=== PATIENT | male | born 1945 | race Two or more races ===

== ENCOUNTER 2022-09-25 14:25 | Inpatient (IN) | payer MEDICARE, OTHER ==
[~2022-09-25] VITALS: Ht 175.3 cm; Wt 52.2 kg
--- NOTE | 2022-09-25 14:44 | NUR ---
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
--- NOTE | 2022-09-25 15:40 | NUR ---
MOVE SHEET SUBMITTED.
[2022-09-25] MEDS ORDERED: METO-357 PO (15:42)
[2022-09-25] MEDS ORDERED: HYDR25TA4 PO (15:42)
[2022-09-25 16:27] LABS: BASOPHILS # (AUTO) 0.1 K/uL (0.0-0.2); BASOPHILS % (AUTO) 0.7 % (0.0-2.0); EOSINOPHILS % (AUTO) 0.5 % (0.0-6.0); HEMATOCRIT 48 % (39-51); HEMOGLOBIN 16.1 g/dL (13.5-17.5); LYMPHOCYTES # (AUTO) 1.8 K/uL (0.8-4.8); LYMPHOCYTES % (AUTO) 18.8 % (20.0-44.0); MEAN CORPUSCULAR HGB CONC 33 g/dl (31.0-36.0); MEAN CORPUSCULAR VOLUME 85 fL (80-96); MONOCYTES # (AUTO) 0.6 K/uL (0.1-1.30); MONOCYTES % (AUTO) 6.4 % (2.0-12.0); NEUTROPHILS # (AUTO) 7.1 K/uL (1.8-8.9); NEUTROPHILS % (AUTO) 73.6 % (43.0-81.0); PLATELET COUNT (AUTO) 322 K/uL (150-450); RED BLOOD CELL COUNT(AUTO) 5.69 MIL/uL (4.5-6.0); WHITE BLOOD COUNT (AUTO) 9.6 K/uL (4.3-11.0)
[2022-09-25 16:30] LABS: BILIRUBIN,URINE NEGATIVE (NEGATIVE); COLOR,URINE YELLOW (YELLOW); LEUKOCYTE ESTERASE ,URINE NEGATIVE (NEGATIVE); NITRITE, URINE NEGATIVE (NEGATIVE); PH,URINE 7.5 (5.0-8.0); PROTEIN,URINE NEGATIVE (NEGATIVE); UGLUCOSE NEGATIVE (NEGATIVE)
[2022-09-25 16:49] LABS: CALCIUM, SERUM 9.2 mg/dL (8.5-10.1); CARBON DIOXIDE 24 mmol/L (21-32); CHLORIDE 100 mmol/L (98-107); CREATININE 0.5 mg/dL (0.6-1.3); GLUCOSE 148 mg/dL (74-106); POTASSIUM 3.5 mmol/L (3.5-5.1); SODIUM SERUM 134 mmol/L (136-145); UREA NITROGEN, BLOOD 19 mg/dL (7-18)
[2022-09-25 17:02] LABS: ALANINE AMINOTRANSFERASE 16 U/L (12-78); ALBUMIN 3.5 g/dL (3.4-5.0); ALKALINE PHOSPHATASE 152 U/L (46-116); ASPARTATE AMINOTRANSFERASE 20 U/L (15-37); BILIRUBIN,DIRECT 0.2 mg/dL (0.0-0.2); BILIRUBIN,TOTAL 0.6 mg/dL (0.2-1.0); TOTAL PROTEIN, SERUM 7.2 g/dL (6.4-8.2)
[2022-09-25] MEDS ORDERED: ONDANSETRON HCL/PF 4 MG/2 ML VIAL IVP PRN (17:30)
[2022-09-25] MEDS ORDERED: Z GUARD REMEDY 4 OZ OINT TP PRN (17:30)
[2022-09-25 17:46] LABS: BACTERIA,URINE None seen /HPF (None Seen); RBC,URINE 0-2 /HPF (0-2); SQUAMOUS EPITHELIAL CELL,UR 0-2 /HPF (None Seen); WBC,URINE 0-2 /HPF (0-3)
--- NOTE | 2022-09-25 19:24 | NUR ---
COVID TEST TAKEN ON BED #3 COMPLETED AND TURNED INTO LAB
--- NOTE | 2022-09-25 19:46 | NUR ---
IV Stop time 1830 no further IV meds ordered until AM 09/26/21 and IV site infiltrated so D/C at this time
--- NOTE | 2022-09-25 20:33 | NUR ---
IV LINE ESTABLISHED, [id number]
--- NOTE | 2022-09-25 21:09 | NUR ---
REPORT GIVEN TO DOYLE BEAR
--- NOTE | 2022-09-25 21:17 | NUR ---
PATIENT BEING TRANSFERRED TO [facility]
--- NOTE | 2022-09-25 21:30 | NUR ---
MS COMMUNITY ENGAGEMENT COORDINATOR NOTE RECEIVED REPORT FROM ER NURSE JUSTUS. PT BEING ADMITTED IN ROOM 109 FOR FAILURE TO THRIVE. PT A/O X3, ABLE TO VERBALIZE NEEDS. PT IS [place]. PT IS ON BED REST. SKIN IS INTACT, HAS BRACES TO BLE, AND WEAKNESS TO BUE, AND BLE. IV SITE TO RIGHT WRIST 20G, PATENT, AND FLUSHING WELL. PT ON ROOM AIR, AND TOLERATING RA WELL. NO S/S OF RESPIRATORY DISTRESS NOTED, NO C/O OF PAIN. BELONGING LIST CHECKED, AND COMPLETED. VS TAKEN, AND RECORDED. ADMISSION COMPLETED. SAFETY MEASURES IMPLEMENTED: BED LOCKED, IN LOWEST POSITION, SR UP X2, CALL LIGHT AND TABLE WITHIN REACH, WILL CONTINUE TO MONITOR PT.
--- NOTE | 2022-09-25 22:35 | NUR ---
RN NOTE PT C/O HEADACHE. TYLENOL ADMINISTERED TO PT FOR HEADACHE.
[2022-09-25] MEDS: ACETAMINOPHEN 325 MG TABLET PO PRN (23:36)
[2022-09-26 04:00] VITALS: BP 103/70
--- NOTE | 2022-09-26 07:04 | NUR ---
STEAM CLEANING MACHINE OPERATOR CLOSING NOTE LEFT PT IN BED, AWAKE. PT ALERT AND ORIENTED X2-3, ABLE TO VERBALIZE NEEDS. NO S/S OF RESPIRATORY DISTRESS NOTED. NO C/O PAIN AT THIS TIME. IV ACCESS TO RIGHT HAND 20G PATENT, AND INFUSING NS AT 80ML/HR. O2 AT 97% ON RA, TOLERATING RA WELL. SAFETY MEASURES IMPLEMENTED, BED LOCKED IN LOWEST POSITION, CALL LIGHT WITHIN REACH, SR UP X2. WILL ENDORSE TO MORNING SHIFT NURSE FOR CONTINUITY OF CARE.
--- NOTE | 2022-09-26 07:34 | NUR ---
MID LEVEL PROJECT MANAGER OPENING NOTES Received pt awake in bed AOx2-3. No complaints of pain or discomfort at this time. Pt is on RA and tolerating it well. IV access on RFA 20G SL patent and intact. Pt had BLE braces on both legs. HOB elevated to pts comfort. Siderails up ar all times x2. Call light within reaach. Will anticipate needs.
[2022-09-26 07:46] LABS: BASOPHILS # (AUTO) 0.1 K/uL (0.0-0.2); EOSINOPHILS % (AUTO) 2.1 % (0.0-6.0); HEMATOCRIT 47 % (39-51); HEMOGLOBIN 15.8 g/dL (13.5-17.5); LYMPHOCYTES # (AUTO) 2.7 K/uL (0.8-4.8); LYMPHOCYTES % (AUTO) 27.6 % (20.0-44.0); MEAN CORPUSCULAR HGB CONC 33 g/dl (31.0-36.0); MEAN CORPUSCULAR VOLUME 85 fL (80-96); MONOCYTES # (AUTO) 1.1 K/uL (0.1-1.30); MONOCYTES % (AUTO) 11.1 % (2.0-12.0); NEUTROPHILS # (AUTO) 5.6 K/uL (1.8-8.9); NEUTROPHILS % (AUTO) 58.2 % (43.0-81.0); PLATELET COUNT (AUTO) 343 K/uL (150-450); RED BLOOD CELL COUNT(AUTO) 5.55 MIL/uL (4.5-6.0); WHITE BLOOD COUNT (AUTO) 9.6 K/uL (4.3-11.0)
[2022-09-26 08:00] VITALS: BP 128/71
[2022-09-26 08:07] LABS: ALANINE AMINOTRANSFERASE 15 U/L (12-78); ALBUMIN 3.3 g/dL (3.4-5.0); ALKALINE PHOSPHATASE 150 U/L (46-116); ASPARTATE AMINOTRANSFERASE 18 U/L (15-37); CALCIUM, SERUM 9.1 mg/dL (8.5-10.1); CARBON DIOXIDE 23 mmol/L (21-32); CHLORIDE 101 mmol/L (98-107); CREATININE 0.4 mg/dL (0.6-1.3); GLUCOSE 106 mg/dL (74-106); MAGNESIUM 2.4 mg/dL (1.8-2.4); PHOSPHORUS 4.2 mg/dL (2.5-4.9); POTASSIUM 3.5 mmol/L (3.5-5.1); SODIUM SERUM 134 mmol/L (136-145); UREA NITROGEN, BLOOD 18 mg/dL (7-18)
[2022-09-26] MEDS: METOPROLOL SUCCINATE 50 MG TAB.SR.24H PO SCH (08:51)
[2022-09-26] MEDS: HYDROCHLOROTHIAZIDE 25 MG TABLET PO SCH (08:52)
[2022-09-26 16:00] VITALS: BP 103/66
[2022-09-26] MEDS: IV NS 0.9% 1,000 ML IV PRN (17:41)
--- NOTE | 2022-09-26 18:35 | NUR ---
SWINE EXTENSION FIELD SPECIALIST CLOSING NOTES All due meds and tx given as ordered. Pt tolerated everything well. All needs attended to. Pt is currently on RA and tolerating it well. IV access on RFA 20G patent and intact currently running NS at 80cc/hr. HOB elevated to pts comfort. Siderails up at all times x2. Call light within reach. Will endorse to oncoming nurse.
[2022-09-26 20:00] VITALS: BP 107/63
--- NOTE | 2022-09-26 20:00 | NUR ---
MS RN OPENING NOTE RECEIVED PT IN BED, AWAKE. ALERT AND ORIENTED X2-3, ABLE TO VERBALIZE NEEDS. O2 SAT AT 97% ON R/A ,NO SOB NO S/S OF RESPIRATORY DISTRESS NOTED. NO C/O PAIN AT THIS TIME.V/S STABLE AFEBRILE . IV ACCESS TO RIGHT FA 20G PATENT, AND INTACT IVF INFUSING NS AT 80ML/HR. SAFETY MEASURES IMPLEMENTED, BED LOCKED IN LOWEST POSITION, CALL LIGHT WITHIN REACH, SR UP X2. WILL CONTINUE TO MONITOR PTS.
[2022-09-27] VITALS: BP 116/53
[2022-09-27] MEDS: ACETAMINOPHEN 325 MG TABLET PO PRN (00:56)
[2022-09-27 04:00] VITALS: BP 99/62
--- NOTE | 2022-09-27 07:18 | NUR ---
MS CLOSING NOTES Pts remain in bed awake alert x3 . on RA and tolerating it well. IV access on RFA 20G patent and intact currently running NS at 80cc/hr. HOB elevated to pts comfort. Siderails up at all times x2. Call light within reach. Will endorse to rn day nurse. for continuity of care.
[2022-09-27] MEDS: IV NS 0.9% 1,000 ML IV PRN (07:30)
[2022-09-27] MEDS: METOPROLOL SUCCINATE 50 MG TAB.SR.24H PO SCH (08:09)
[2022-09-27] MEDS: HYDROCHLOROTHIAZIDE 25 MG TABLET PO SCH (08:09)
--- NOTE | 2022-09-27 09:45 | NUR ---
Received pt awake in bed AOx2-3. No complaints of pain or discomfort at this time. Pt is on RA and tolerating it well. IV access on RFA 20G SL patent and intact. Pt had BLE braces on both legs. HOB elevated to pts comfort. Siderails up ar all times x2. Call light within reaach. Will anticipate needs.
[2022-09-27 16:00] VITALS: BP 122/76
[2022-09-27] MEDS: ENSURE ENLIVE 237 ML LIQUID (VANILLA) PO SCH (17:00)
[2022-09-27 20:00] VITALS: BP 125/76
[2022-09-28] VITALS: BP 130/76
[2022-09-28] MEDS: ACETAMINOPHEN 325 MG TABLET PO PRN (01:28)
[2022-09-28] MEDS: IV NS 0.9% 1,000 ML IV PRN (01:36)
--- NOTE | 2022-09-28 07:15 | NUR ---
RN OPENING NOTE PT IS IN BED SLEEPING BUT EASILY AROUSED, BREATHING UNLABORED, NO SOB, ON RM AIR, SATURATION 97%. IV ACCESS RIGHT FA #20g SALINE LOCKED, FLUSHES WELL. PLAN FOR TODAY IS A SAFETY D/C PATIENT TO SNF. ALL SAFETY MEASURES IMPLEMENTED, CALL LIGHT WITHIN REACH.
[2022-09-28 08:00] VITALS: BP 127/72
[2022-09-28] MEDS: ENSURE ENLIVE 237 ML LIQUID (VANILLA) PO SCH ×2 (08:26→12:00)
[2022-09-28] MEDS: HYDROCHLOROTHIAZIDE 25 MG TABLET PO SCH (09:00)
[2022-09-28 09:01] VITALS: BP 127/72
[2022-09-28] MEDS: METOPROLOL SUCCINATE 50 MG TAB.SR.24H PO SCH (09:01)
--- NOTE | 2022-09-28 11:38 | NUR ---
PATIENT SCHEDULED TO BE DISCHARGE TODAY, GOING TO [facility]. OVER THE PHONE REPORT GIVEN TO KAYDEN NURSE AT [facility].
--- NOTE | 2022-09-28 13:51 | NUR ---
PATIENT DISCHARGED TO [facility]. TRANSPORTED BY [facility]. VITAL SIGNS UPON DISCHARGE: BP 142/77; HEART RATE 103; RESP 18; O2 ON RA 96.
== END 2022-09-28 14:13 | DRG 641 ==
LOC: ER 14:35 → MEDSG1 20:43
PROVIDERS: ADMIT Internal Medicine; ATTEND Internal Medicine
DX: R62.7 Adult failure to thrive (principal); Z68.1 Body mass index [BMI] 19.9 or less, adult; E87.1 Hypo-osmolality and hyponatremia; Z20.822 Contact with and (suspected) exposure to COVID-19; I10 Essential (primary) hypertension; F03.90 Unspecified dementia, unspecified severity, without behavioral disturbance, psychotic disturbance, mood disturbance, and anxiety
CPT/HCPCS: 36415; 80048-TC; 80053-TC; 80076-TC; 81001; 83735-TC; 84100-TC; 84484-TC; 85025-TC; 87081-TC; C9803; G0378; J7030

== ENCOUNTER 2023-01-09 14:58 | Inpatient (IN) | payer MEDICARE, OTHER ==
[~2023-01-09] VITALS: Ht 172.7 cm; Wt 52.2 kg
[~2023-01-09 14:58] MED LIST: HYDR25TA4 PO; METO-357 PO
[2023-01-09 15:31] LABS: BASOPHILS # (AUTO) 0.2 K/uL (0.0-0.2); BASOPHILS % (AUTO) 0.8 % (0.0-2.0); EOSINOPHILS % (AUTO) 0.1 % (0.0-6.0); HEMATOCRIT 41 % (39-51); HEMOGLOBIN 13.6 g/dL (13.5-17.5); LYMPHOCYTES % (AUTO) 8.5 % (20.0-44.0); MEAN CORPUSCULAR HGB CONC 33 g/dl (31.0-36.0); MEAN CORPUSCULAR VOLUME 81 fL (80-96); MONOCYTES # (AUTO) 1.3 K/uL (0.1-1.30); MONOCYTES % (AUTO) 5.5 % (2.0-12.0); NEUTROPHILS # (AUTO) 19.8 K/uL (1.8-8.9); NEUTROPHILS % (AUTO) 85.1 % (43.0-81.0); PLATELET COUNT (AUTO) 460 K/uL (150-450); RED BLOOD CELL COUNT(AUTO) 5.03 MIL/uL (4.5-6.0); WHITE BLOOD COUNT (AUTO) 23.3 K/uL (4.3-11.0)
[2023-01-09 15:46] LABS: ALANINE AMINOTRANSFERASE 33 U/L (12-78); ALBUMIN 2.3 g/dL (3.4-5.0); ALKALINE PHOSPHATASE 216 U/L (46-116); ASPARTATE AMINOTRANSFERASE 28 U/L (15-37); BILIRUBIN,DIRECT 1.2 mg/dL (0.0-0.2); BILIRUBIN,TOTAL 1.8 mg/dL (0.2-1.0); CALCIUM, SERUM 8.9 mg/dL (8.5-10.1); CARBON DIOXIDE 26 mmol/L (21-32); CHLORIDE 91 mmol/L (98-107); CREATININE 0.5 mg/dL (0.6-1.3); GLUCOSE 150 mg/dL (74-106); LIPASE 1068 U/L (73-393); POTASSIUM 3.1 mmol/L (3.5-5.1); SODIUM SERUM 126 mmol/L (136-145); TOTAL PROTEIN, SERUM 6.7 g/dL (6.4-8.2); UREA NITROGEN, BLOOD 22 mg/dL (7-18)
[2023-01-09 16:10] LABS: LYMPHOCYTES % (MANUAL) 9 % (16-48); MONOCYTES % (MANUAL) 4 % (0-11.0); NEUTROPHILS % (MANUAL) 87 (42-76)
[2023-01-09] MEDS ORDERED: KETOROLAC TROMETHAMINE 15 MG/ML VIAL ONE (16:14)
[2023-01-09] MEDS ORDERED: POTASSIUM CL. PREMIX PERIPHER. 50 ML ONE ×4 (16:15→19:53)
[2023-01-09 16:19] LABS: BILIRUBIN,URINE 1+ (NEGATIVE); COLOR,URINE YELLOW (YELLOW); LEUKOCYTE ESTERASE ,URINE NEGATIVE (NEGATIVE); NITRITE, URINE NEGATIVE (NEGATIVE); PH,URINE 7.5 (5.0-8.0); PROTEIN,URINE 1+ mg/dl (NEGATIVE); UGLUCOSE NEGATIVE (NEGATIVE); UROBILINOGEN,URINE >=8.0 EU/dL (0.2)
[2023-01-09] MEDS: POTASSIUM CL. PREMIX PERIPHER. 50 ML IV SCH ×4 (16:25→19:55)
[2023-01-09] MEDS ORDERED: VANCOMYCIN 1 GM in IV D5W 250 ML IV ONE (16:30)
[2023-01-09] MEDS ORDERED: KETOROLAC TROMETHAMINE INJ 30 MG/ML VIAL IV ONE (16:30)
[2023-01-09] MEDS ORDERED: IV NS 0.9% 1,000 ML IV ONE (17:00)
[2023-01-09 17:04] LABS: BACTERIA,URINE None seen /HPF (None Seen); URINE AMORPHOUS PHOSPHATES Many /HPF (None Seen); WBC,URINE 0-2 /HPF (0-3)
[2023-01-09] MEDS: CEFEPIME 1 GM in IV D5W 50 ML IV ONE ×2 (17:35→18:37)
[2023-01-09] MEDS ORDERED: DONE5TAB34 PO (17:38)
[2023-01-09] MEDS ORDERED: CHOL100043 PO (17:38)
[2023-01-09] MEDS ORDERED: ACET-868 PO (17:38)
[2023-01-09] MEDS ORDERED: MULT-447 PO (17:38)
[2023-01-09] MEDS ORDERED: DOCU-141 PO (17:38)
[2023-01-09] MEDS ORDERED: MAGN400O6 PO (17:38)
[2023-01-09] MEDS ORDERED: PANT40TA2 PO (17:38)
[2023-01-09] MEDS ORDERED: AMIN30LI2 PO (17:38)
[2023-01-09] MEDS ORDERED: MAG30ORA PO (17:38)
[2023-01-09] MEDS ORDERED: NA P133E RC (17:38)
[2023-01-09] MEDS ORDERED: BISA10SU11 RC (17:38)
[2023-01-09] MEDS ORDERED: ACET-2605 PO (17:38)
[2023-01-09] MEDS ORDERED: ONDANSETRON HCL/PF 4 MG/2 ML VIAL IVP PRN (18:30)
[2023-01-09] MEDS ORDERED: MORPHINE SULFATE INJ 2 MG/ML DISP.SYRIN IV PRN (18:30)
[2023-01-09] MEDS ORDERED: HYDROCODONE/APAP 5/325MG TABLET PO PRN (18:30)
[2023-01-09] MEDS ORDERED: HYDROCODONE/APAP 10/325MG TABLET PO PRN (18:30)
[2023-01-09] MEDS ORDERED: MAG HYDROX/AL HYDROX/SIMETH 30 ML UDC PO PRN (18:30)
[2023-01-09] MEDS ORDERED: MAGNESIUM HYDROXIDE 30 ML UDC PO PRN (18:30)
[2023-01-09] MEDS ORDERED: Z GUARD REMEDY 4 OZ OINT TP PRN (18:30)
[2023-01-09] MEDS ORDERED: IV NS 0.9% 500 ML BAG IV ONE (19:30)
[2023-01-10] MEDS: IV NS 0.9% 1,000 ML IV PRN ×2 (00:29→16:48)
[2023-01-10] MEDS ORDERED: PIPERACILLIN /TAZOBACTAM 3.375 G VIAL IV ONE (00:33)
[2023-01-10] MEDS: ZOSYN IVPB 3.375 G in IV D5W 50ml IV SCH ×5 (00:59→23:22)
[2023-01-10] MEDS: ENOXAPARIN SODIUM 40 MG/0.4 ML DISP.SYRIN SQ SCH ×2 (02:31→17:31)
[2023-01-10 05:10] VITALS: BP 90/53
[2023-01-10 06:22] LABS: BASOPHILS % (AUTO) 0.3 % (0.0-2.0); EOSINOPHILS % (AUTO) 0.3 % (0.0-6.0); HEMATOCRIT 41 % (39-51); HEMOGLOBIN 13.6 g/dL (13.5-17.5); LYMPHOCYTES # (AUTO) 1.2 K/uL (0.8-4.8); LYMPHOCYTES % (AUTO) 7.3 % (20.0-44.0); MEAN CORPUSCULAR HGB CONC 33 g/dl (31.0-36.0); MEAN CORPUSCULAR VOLUME 81 fL (80-96); MONOCYTES % (AUTO) 6.3 % (2.0-12.0); NEUTROPHILS # (AUTO) 14.3 K/uL (1.8-8.9); NEUTROPHILS % (AUTO) 85.8 % (43.0-81.0); PLATELET COUNT (AUTO) 444 K/uL (150-450); RED BLOOD CELL COUNT(AUTO) 5.05 MIL/uL (4.5-6.0); WHITE BLOOD COUNT (AUTO) 16.6 K/uL (4.3-11.0)
[2023-01-10 06:55] LABS: CALCIUM, SERUM 8.6 mg/dL (8.5-10.1); CARBON DIOXIDE 23 mmol/L (21-32); CHLORIDE 95 mmol/L (98-107); CREATININE 0.4 mg/dL (0.6-1.3); GLUCOSE 96 mg/dL (74-106); PHOSPHORUS 3.5 mg/dL (2.5-4.9); POTASSIUM 3.4 mmol/L (3.5-5.1); SODIUM SERUM 129 mmol/L (136-145); UREA NITROGEN, BLOOD 19 mg/dL (7-18)
[2023-01-10] MEDS: PANTOPRAZOLE 40 MG TABLET.DR PO SCH (07:22)
[2023-01-10] MEDS: POTASSIUM CL. PREMIX PERIPHER. 50 ML IV SCH ×2 (10:03→11:08)
[2023-01-10] MEDS: ACETAMINOPHEN 325 MG TABLET PO PRN ×2 (10:50→17:46)
[2023-01-10 16:00] VITALS: BP 100/53
[2023-01-10 20:00] VITALS: BP 111/56
[2023-01-11] MEDS: ZOSYN IVPB 3.375 G in IV D5W 50ml IV SCH ×3 (05:13→17:10)
[2023-01-11 08:00] VITALS: BP 123/65
[2023-01-11] MEDS: PANTOPRAZOLE 40 MG TABLET.DR PO SCH (08:34)
[2023-01-11] MEDS: IV NS 0.9% 1,000 ML IV PRN (10:37)
[2023-01-11 16:00] VITALS: BP 109/59
[2023-01-11 17:02] LABS: BASOPHILS # (AUTO) 0.1 K/uL (0.0-0.2); BASOPHILS % (AUTO) 0.5 % (0.0-2.0); EOSINOPHILS % (AUTO) 1.3 % (0.0-6.0); HEMATOCRIT 38 % (39-51); HEMOGLOBIN 12.4 g/dL (13.5-17.5); LYMPHOCYTES # (AUTO) 1.7 K/uL (0.8-4.8); LYMPHOCYTES % (AUTO) 15.4 % (20.0-44.0); MEAN CORPUSCULAR HGB CONC 33 g/dl (31.0-36.0); MEAN CORPUSCULAR VOLUME 83 fL (80-96); MONOCYTES # (AUTO) 0.9 K/uL (0.1-1.30); MONOCYTES % (AUTO) 8.2 % (2.0-12.0); NEUTROPHILS # (AUTO) 8.1 K/uL (1.8-8.9); NEUTROPHILS % (AUTO) 74.6 % (43.0-81.0); PLATELET COUNT (AUTO) 491 K/uL (150-450); RED BLOOD CELL COUNT(AUTO) 4.63 MIL/uL (4.5-6.0); WHITE BLOOD COUNT (AUTO) 10.9 K/uL (4.3-11.0)
[2023-01-11] MEDS: ENOXAPARIN SODIUM 40 MG/0.4 ML DISP.SYRIN SQ SCH (17:32)
[2023-01-12] VITALS: BP 97/55
[2023-01-12] MEDS: ZOSYN IVPB 3.375 G in IV D5W 50ml IV SCH ×4 (01:01→17:04)
[2023-01-12] MEDS: IV NS 0.9% 1,000 ML IV PRN ×2 (01:57→22:31)
[2023-01-12 08:00] VITALS: BP 116/64
[2023-01-12] MEDS: PANTOPRAZOLE 40 MG TABLET.DR PO SCH (08:22)
[2023-01-12 12:21] LABS: BASOPHILS # (AUTO) 0.1 K/uL (0.0-0.2); BASOPHILS % (AUTO) 0.7 % (0.0-2.0); EOSINOPHILS % (AUTO) 1.4 % (0.0-6.0); HEMATOCRIT 37 % (39-51); HEMOGLOBIN 12.5 g/dL (13.5-17.5); LYMPHOCYTES # (AUTO) 1.8 K/uL (0.8-4.8); LYMPHOCYTES % (AUTO) 19.4 % (20.0-44.0); MEAN CORPUSCULAR HGB CONC 34 g/dl (31.0-36.0); MEAN CORPUSCULAR VOLUME 81 fL (80-96); MONOCYTES # (AUTO) 0.9 K/uL (0.1-1.30); MONOCYTES % (AUTO) 9.1 % (2.0-12.0); NEUTROPHILS # (AUTO) 6.5 K/uL (1.8-8.9); NEUTROPHILS % (AUTO) 69.4 % (43.0-81.0); PLATELET COUNT (AUTO) 488 K/uL (150-450); RED BLOOD CELL COUNT(AUTO) 4.58 MIL/uL (4.5-6.0); WHITE BLOOD COUNT (AUTO) 9.4 K/uL (4.3-11.0)
[2023-01-12] MEDS: ENSURE CLEAR 237 ML LIQUID (MIX BERRY) PO SCH ×2 (12:52→17:00)
[2023-01-12 16:00] VITALS: BP 109/63
[2023-01-12] MEDS: ENOXAPARIN SODIUM 40 MG/0.4 ML DISP.SYRIN SQ SCH (17:33)
[2023-01-12 20:00] VITALS: BP 111/62
[2023-01-13] VITALS: BP 116/70
[2023-01-13] MEDS: ZOSYN IVPB 3.375 G in IV D5W 50ml IV SCH ×5 (00:25→17:32)
[2023-01-13 04:00] VITALS: BP 126/60
[2023-01-13 08:00] VITALS: BP 112/61
[2023-01-13] MEDS: ENSURE CLEAR 237 ML LIQUID (MIX BERRY) PO SCH (08:00)
[2023-01-13] MEDS: PANTOPRAZOLE 40 MG TABLET.DR PO SCH (08:47)
[2023-01-13 16:00] VITALS: BP 106/63
[2023-01-13] MEDS: ENOXAPARIN SODIUM 40 MG/0.4 ML DISP.SYRIN SQ SCH ×2 (17:31→17:38)
[2023-01-13] MEDS: IV NS 0.9% 1,000 ML IV PRN (22:09)
[2023-01-14 04:00] VITALS: BP 120/63
[2023-01-14] MEDS: ZOSYN IVPB 3.375 G in IV D5W 50ml IV SCH ×5 (05:56→18:21)
[2023-01-14 07:37] LABS: CARBON DIOXIDE 26 mmol/L (21-32); CHLORIDE 104 mmol/L (98-107); CREATININE 0.3 mg/dL (0.6-1.3); GLUCOSE 133 mg/dL (74-106); UREA NITROGEN, BLOOD 5 mg/dL (7-18)
[2023-01-14 07:44] LABS: SODIUM SERUM 137 mmol/L (136-145)
[2023-01-14 08:00] VITALS: BP 130/64
[2023-01-14 08:18] LABS: POTASSIUM 2.5 mmol/L (3.5-5.1)
[2023-01-14] MEDS: PANTOPRAZOLE 40 MG TABLET.DR PO SCH (08:46)
[2023-01-14] MEDS: POTASSIUM CHLORIDE 20 MEQ TAB.PRT.SR PO SCH ×2 (11:04→14:01)
[2023-01-14 16:00] VITALS: BP 122/72
[2023-01-14] MEDS: IV NS 0.9% 1,000 ML IV PRN (16:14)
[2023-01-14 16:28] LABS: POTASSIUM 3.5 mmol/L (3.5-5.1)
[2023-01-14] MEDS ORDERED: AMOX-430 PO (17:35)
[2023-01-14] MEDS: ENOXAPARIN SODIUM 40 MG/0.4 ML DISP.SYRIN SQ SCH (18:22)
== END 2023-01-14 20:35 | DRG 439 ==
LOC: ER 15:38 → MEDSG1 19:57
PROVIDERS: ATTEND Nurse Practitioner Acute Care
DX: K85.10 Biliary acute pancreatitis without necrosis or infection (principal); E87.1 Hypo-osmolality and hyponatremia; K57.92 Diverticulitis of intestine, part unspecified, without perforation or abscess without bleeding; F03.94 Unspecified dementia, unspecified severity, with anxiety; F03.93 Unspecified dementia, unspecified severity, with mood disturbance; M48.56XA Collapsed vertebra, not elsewhere classified, lumbar region, initial encounter for fracture; E87.6 Hypokalemia; Z20.822 Contact with and (suspected) exposure to COVID-19; F39 Unspecified mood [affective] disorder; F41.9 Anxiety disorder, unspecified; I11.0 Hypertensive heart disease with heart failure; I50.9 Heart failure, unspecified; Z79.899 Other long term (current) drug therapy; E80.6 Other disorders of bilirubin metabolism; R94.5 Abnormal results of liver function studies; R79.89 Other specified abnormal findings of blood chemistry; D72.829 Elevated white blood cell count, unspecified; K82.8 Other specified diseases of gallbladder; N40.0 Benign prostatic hyperplasia without lower urinary tract symptoms
CPT/HCPCS: 36415; 74181-TC; 76705-TC; 78226; 80048-TC; 80076-TC; 81001; 83605-TC; 83690-TC; 83735-TC; 84100-TC; 84132-TC; 84295-TC; 85025-TC; 85730-TC; 87040-TC; 87081-TC; 87086-TC; A4223; A9537; C9803; G0378; J0692; J1650; J1885; J2543; J3370; J3480; J7030; J7060

== ENCOUNTER 2024-05-11 15:09 | Inpatient (IN) | payer MEDICARE, OTHER ==
[~2024-05-11] VITALS: Ht 170.2 cm; Wt 67.1 kg
[~2024-05-11 15:09] MED LIST changes: +ACET-2605 PO; +ACET-868 PO; +AMIN30LI2 PO; +AMOX-430 PO; +BISA10SU11 RC; +CHOL100043 PO; +DOCU-141 PO; +DONE5TAB34 PO; +MAG30ORA PO; +MAGN400O6 PO; +MULT-447 PO; +NA P133E RC; +PANT40TA2 PO
[2024-05-11] MEDS: IV NS 0.9% 1,000 ML BAG IV ONE ×2 (15:41→17:21)
[2024-05-11 15:46] LABS: BASOPHILS # (AUTO) 0.1 K/uL (0.0-0.2); BASOPHILS % (AUTO) 1.2 % (0.0-2.0); EOSINOPHILS # (AUTO) 0.2 K/uL (0.0-0.7); EOSINOPHILS % (AUTO) 1.6 % (0.0-6.0); HEMATOCRIT 48 % (39-51); HEMOGLOBIN 15.8 g/dL (13.5-17.5); LYMPHOCYTES % (AUTO) 29.7 % (20.0-44.0); MEAN CORPUSCULAR HEMOGLOBIN 28 PG (26.0-33.0); MEAN CORPUSCULAR HGB CONC 33 g/dl (31.0-36.0); MEAN CORPUSCULAR VOLUME 83 fL (80-96); MONOCYTES # (AUTO) 0.8 K/uL (0.1-1.30); MONOCYTES % (AUTO) 7.8 % (2.0-12.0); NEUTROPHILS % (AUTO) 59.7 % (43.0-81.0); PLATELET COUNT (AUTO) 319 K/uL (150-450); RED BLOOD CELL COUNT(AUTO) 5.76 MIL/uL (4.5-6.0)
[2024-05-11 16:01] LABS: INR 0.99 (0.91-1.10); PARTIAL THROMBOPLASTIN TIME 26.8 SEC (24.3-34.3); PROTHROMBIN TIME 10.5 SECS (9.2-11.1)
[2024-05-11 16:04] LABS: CALCIUM, SERUM 9.1 mg/dL (8.5-10.1); CARBON DIOXIDE 26 mmol/L (21-32); CHLORIDE 99 mmol/L (98-107); CREATININE 0.5 mg/dL (0.6-1.3); GLUCOSE 245 mg/dL (74-106); SERUM AMMONIA 28 umol/L (11-32); SODIUM SERUM 134 mmol/L (136-145); UREA NITROGEN, BLOOD 19 mg/dL (7-18)
[2024-05-11 16:17] LABS: ALANINE AMINOTRANSFERASE 56 U/L (12-78); ALBUMIN 3.2 g/dL (3.4-5.0); ALCOHOL, BLOOD < 3 mg/dL (0-10); ALKALINE PHOSPHATASE 114 U/L (46-116); ASPARTATE AMINOTRANSFERASE 39 U/L (15-37); BILIRUBIN,DIRECT 0.1 mg/dL (0.0-0.2); BILIRUBIN,TOTAL 0.5 mg/dL (0.2-1.0); TOTAL PROTEIN, SERUM 7.2 g/dL (6.4-8.2)
[2024-05-11 16:19] LABS: ACETAMINOPHEN 0 ug/ml (10-30); SALICYLATE 1.5 mg/dL (2.8-20.0)
[2024-05-11] MEDS ORDERED: Z GUARD REMEDY 4 OZ OINT TP PRN (17:00)
[2024-05-11] MEDS ORDERED: MAG HYDROX/AL HYDROX/SIMETH 30 ML UDC PO PRN (17:00)
[2024-05-11] MEDS ORDERED: MAGNESIUM HYDROXIDE 30 ML UDC PO PRN (17:00)
[2024-05-11] MEDS ORDERED: ONDANSETRON HCL/PF 4 MG/2 ML VIAL IVP PRN (17:00)
[2024-05-11] MEDS ORDERED: NA PHOS,M-B/NA PHOS,DI-BA 1 EA ENEMA RC PRN (17:00)
[2024-05-11] MEDS ORDERED: HYDROCODONE/APAP 5/325MG TABLET PO PRN (17:00)
[2024-05-11] MEDS ORDERED: BISACODYL SUPP (10 MG) 10 MG/SUPP.RECT SUPP.RECT RC PRN (17:00)
[2024-05-11] MEDS: IV NS 0.9% 1,000 ML IV PRN (17:22)
[2024-05-11 17:28] LABS: APPEARANCE,URINE CLEAR (CLEAR); BILIRUBIN,URINE NEGATIVE (NEGATIVE); BLOOD, URINE NEGATIVE Ery/uL (NEGATIVE); COLOR,URINE YELLOW (YELLOW); KETONES,URINE NEGATIVE (NEGATIVE); PH,URINE 6.5 (5.0-8.0); PROTEIN,URINE NEGATIVE (NEGATIVE); UGLUCOSE 1000 MG/DL mg/dL (NEGATIVE)
[2024-05-11 17:29] LABS: LEUKOCYTE ESTERASE ,URINE NEGATIVE (NEGATIVE); NITRITE, URINE NEGATIVE (NEGATIVE)
[2024-05-11 17:30] VITALS: BP 116/66; TEMP 98.8; O2SAT 95
[2024-05-11 17:30] LABS: ADD URINE CULTURE NO; BACTERIA,URINE Rare /HPF (None Seen); RBC,URINE 0-2 /HPF (0-2); SQUAMOUS EPITHELIAL CELL,UR Rare /HPF (None Seen); WBC,URINE 0-2 /HPF (0-3)
[2024-05-11 17:40] LABS: AMPHETAMINE, URINE NEGATIVE (NEGATIVE); BARBITURATE, URINE NEGATIVE (NEGATIVE); BENZODIAZEPINE, URINE NEGATIVE (NEGATIVE); CANNABINOID, URINE NEGATIVE (NEGATIVE); COCCAINE, URINE NEGATIVE (NEGATIVE); OPIATE, URINE NEGATIVE (NEGATIVE); PHENCYCLIDINE SCREEN,URINE NEGATIVE (NEGATIVE)
[2024-05-11] MEDS: CHOLECALCIFEROL 1,000 UNIT TABLET (VIT D3) PO SCH (18:01)
[2024-05-11] MEDS: ACETAMINOPHEN 325 MG TABLET PO PRN (18:01)
[2024-05-11] MEDS: DOCUSATE SODIUM 100 MG CAPSULE PO SCH (18:01)
[2024-05-11 20:00] VITALS: BP 114/66; TEMP 97.6; O2SAT 98
[2024-05-11] MEDS ORDERED: ZOLPIDEM TARTRATE 5 MG TABLET PO PRN (22:00)
[2024-05-12 06:43] LABS: BASOPHILS # (AUTO) 0.1 K/uL (0.0-0.2); BASOPHILS % (AUTO) 0.5 % (0.0-2.0); EOSINOPHILS # (AUTO) 0.2 K/uL (0.0-0.7); EOSINOPHILS % (AUTO) 2.3 % (0.0-6.0); HEMATOCRIT 46 % (39-51); HEMOGLOBIN 15.1 g/dL (13.5-17.5); LYMPHOCYTES # (AUTO) 3.1 K/uL (0.8-4.8); LYMPHOCYTES % (AUTO) 32.2 % (20.0-44.0); MEAN CORPUSCULAR HEMOGLOBIN 28 PG (26.0-33.0); MEAN CORPUSCULAR HGB CONC 33 g/dl (31.0-36.0); MEAN CORPUSCULAR VOLUME 84 fL (80-96); MONOCYTES # (AUTO) 0.8 K/uL (0.1-1.30); MONOCYTES % (AUTO) 7.9 % (2.0-12.0); NEUTROPHILS # (AUTO) 5.5 K/uL (1.8-8.9); NEUTROPHILS % (AUTO) 57.1 % (43.0-81.0); PLATELET COUNT (AUTO) 291 K/uL (150-450); RED CELL DISTRIBUTION WIDTH 14.8 % (11.5-15.0); WHITE BLOOD COUNT (AUTO) 9.7 K/uL (4.3-11.0)
[2024-05-12 06:56] LABS: CHOLESTEROL 175 mg/dL (<200); HDL CHOLESTEROL 35 mg/dL (40-60); LDL 110 mg/dL (0-99); TRIGLYCERIDES 229 mg/dL (30-150)
[2024-05-12 06:57] LABS: CALCIUM, SERUM 8.6 mg/dL (8.5-10.1); CARBON DIOXIDE 18 mmol/L (21-32); CHLORIDE 105 mmol/L (98-107); CREATININE 0.3 mg/dL (0.6-1.3); GLUCOSE 195 mg/dL (74-106); MAGNESIUM 2.1 mg/dL (1.8-2.4); PHOSPHORUS 2.4 mg/dL (2.5-4.9); POTASSIUM 3.9 mmol/L (3.5-5.1); SODIUM SERUM 137 mmol/L (136-145); UREA NITROGEN, BLOOD 17 mg/dL (7-18)
[2024-05-12 08:00] VITALS: BP 142/71; TEMP 98.4; O2SAT 98
[2024-05-12] MEDS: PANTOPRAZOLE 40 MG TABLET.DR PO SCH (08:16)
[2024-05-12] MEDS: DONEPEZIL 5 MG TABLET PO SCH (09:25)
[2024-05-12] MEDS: MULTIVITAMINS,THERAGRAN 1 UDTAB TABLET PO SCH (09:27)
[2024-05-12] MEDS: METOPROLOL SUCCINATE 50 MG TAB.SR.24H PO SCH (09:27)
[2024-05-12 16:00] VITALS: BP 116/71; TEMP 98.2; O2SAT 95
[2024-05-12] MEDS: NEUTRA PHOS 1 POWD.PACKET PO ONE (17:32)
[2024-05-12 20:00] VITALS: BP 128/66; TEMP 97; O2SAT 95
[2024-05-13 07:12] LABS: CALCIUM, SERUM 8.2 mg/dL (8.5-10.1); CARBON DIOXIDE 19 mmol/L (21-32); CHLORIDE 107 mmol/L (98-107); CREATININE 0.3 mg/dL (0.6-1.3); GLUCOSE 154 mg/dL (74-106); POTASSIUM 4.1 mmol/L (3.5-5.1); SODIUM SERUM 139 mmol/L (136-145); UREA NITROGEN, BLOOD 14 mg/dL (7-18)
[2024-05-13 08:00] VITALS: BP 128/80; TEMP 97.3; O2SAT 97
[2024-05-13 16:00] VITALS: BP 115/57; TEMP 98.2; O2SAT 97
[2024-05-13 20:18] VITALS: BP 125/76; TEMP 97.9; O2SAT 95
[2024-05-14 09:39] VITALS: BP 96/62
== END 2024-05-14 14:48 | DRG 641 ==
LOC: ER 15:12 → MED 16:25
PROVIDERS: ADMIT Nurse Practitioner Acute Care; ATTEND Nurse Practitioner Acute Care
DX: E86.0 Dehydration (principal); F03.94 Unspecified dementia, unspecified severity, with anxiety; F03.93 Unspecified dementia, unspecified severity, with mood disturbance; K86.1 Other chronic pancreatitis; R73.9 Hyperglycemia, unspecified; I10 Essential (primary) hypertension; E80.6 Other disorders of bilirubin metabolism; Z79.899 Other long term (current) drug therapy; F39 Unspecified mood [affective] disorder; R62.7 Adult failure to thrive; Z87.19 Personal history of other diseases of the digestive system
CPT/HCPCS: 36415; 70450-TC; 71045-TC; 80048-TC; 80061-TC; 80076-TC; 81001; 82140-TC; 83735-TC; 84100-TC; 84439-TC; 84443-TC; 84484-TC; 85025-TC; 85730-TC; 87081-TC; 97110-TC; 97530-TC; A4223; G0378; G0480; J7030